=== PATIENT | female | born 1930 | race Caucasian/White ===

== ENCOUNTER 2021-03-21 12:52 | Inpatient (IN) ==
[2021-03-21] MEDS ORDERED: HYDROmorphone 2 MG/1 ML VIAL IV STA (14:20)
[2021-03-21] MEDS ORDERED: ONDANSETRON 4 MG/2 ML VIAL IV STA (14:20)
[2021-03-21] MEDS ORDERED: ONDANSETRON 4 MG/2 ML VIAL ONE (14:22)
[2021-03-21] MEDS ORDERED: HYDROmorphone 2 MG/1 ML VIAL ONE (14:23)
[2021-03-21 14:32] LABS: Basophils # 0.1 10*3/uL (0.0-0.2); Basophils % 0.6 % (0.0-0.8); Eosinophils % 0.1 % (0.00-10.9); Hematocrit 21.5 VOL% (35.7-47.0); Hemoglobin 7.1 GM/DL (12.0-16.0); Immature Granulocytes % 0.7 %; Immature Granulocytes Absolute 0.06 #; Lymphocytes % 12.1 % (21.3-54.2); Mean Corpuscular Volume 110.3 FL (87-102); Mean Platelet Volume 13.9 FL (9.6-12.0); Monocytes % 11.5 % (1.7-12.7); Platelet Count 210 T/CUMM (130-400); Red Blood Count 1.95 MC/CUMM (3.8-5.5); Red Cell Distribution Width 17.2 % (9.3-17.3); White Blood Count 8.2 T/CUMM (4-12)
[2021-03-21 14:40] LABS: PT Patient Result 11.7 SECS (9.8-11.9); Partial Thromboplastin Time 23.4 SECS (23.9-33.8)
[2021-03-21 14:46] LABS: Albumin 2.9 G/DL (3.4-5.0); Bilirubin,Total 0.8 MG/DL (0.2-1.0); Calcium 9.5 MG/DL (8.5-10.1); Osmolality,Calculated 283.4 MOS/KG (273-304); Potassium 4.9 MMOL/L (3.5-5.1); Total Protein 6.5 G/DL (6.4-8.2)
[2021-03-21 14:57] LABS: Bacteria,Urine Many /HPF (Few); Bilirubin,Urine Negative (Negative); Blood, Urine Negative (Negative); Glucose,Urine (UA) Negative (Negative); Ketones,Urine Negative (Negative); Mucus,Urine Few /LPF (Occasional); Nitrite,Urine Negative (Negative); Protein,Urine Negative; RBC,Urine 5 /HPF (0-4); Squamous Epithelial Cell,Urine Occasional /HPF (0-10); Urine Appearance Slightly Hazy (Clear); Urine Color Yellow (Yellow); Urine Specific Gravity 1.018 (1.001-1.035); Urine Urobilinogen < 2.0 EU/DL (0.2-1.0); WBC,Urine 118 /HPF (0-6)
[2021-03-21] MEDS ORDERED: ONDANSETRON 4 MG/2 ML VIAL IV PRN (16:02)
[2021-03-21] MEDS ORDERED: GLUCAGON 1 MG VIAL IM PRN (16:02)
[2021-03-21] MEDS ORDERED: DEXTROSE 50% 25 GM/50 ML VIAL IV PRN (16:02)
[2021-03-21] MEDS ORDERED: ACETAMINOPHEN 325 MG TABLET PO PRN (16:02)
[2021-03-21] MEDS ORDERED: SODIUM CHLORIDE 0.9% 1,000 ML IV PRN (16:07)
[2021-03-21 16:33] LABS: % Iron Saturation 17.4 % (18-50)
[2021-03-21 16:36] LABS: Folate > 24.0 NG/ML (5.38-24.0); Vitamin B12 632 PG/ML (211-911)
[2021-03-21] MEDS: SODIUM CHLORIDE 0.9% 1,000 ML IV SCH (18:55)
[2021-03-21] MEDS: cefTRIAXone 1,000 MG in SODIUM CHLORIDE 0.9% 100 ML IV SCH (18:56)
[2021-03-21] MEDS: PANTOPRAZOLE 40 MG TABLET PO SCH (18:56)
[2021-03-21] MEDS: MEMANTINE 5 MG TABLET PO SCH (22:17)
[2021-03-22] MEDS ORDERED: LEVOTHYROXINE 75 MCG TABLET PO SCH (06:30)
[2021-03-22 07:24] LABS: Albumin 2.3 G/DL (3.4-5.0); Bilirubin,Total 1.3 MG/DL (0.2-1.0); Potassium 4.9 MMOL/L (3.5-5.1); Risk Ratio 2.33; Total Protein 5.3 G/DL (6.4-8.2); VLDL CHOLESTEROL 11.6 MG/DL
[2021-03-22 07:50] LABS: Basophils % 0.4 % (0.0-0.8); Eosinophils % 0.2 % (0.00-10.9); Immature Granulocytes % 0.6 %; Immature Granulocytes Absolute 0.03 #; Lymphocytes # 1.3 10*3/uL (1.4-4.0); Mean Corpuscular HGB Conc 33.1 GM/DL (32-36); Mean Corpuscular Volume 111.3 FL (87-102); Mean Platelet Volume 13.7 FL (9.6-12.0); Monocytes % 8.3 % (1.7-12.7); Neutrophils % 67.5 % (38.7-73.9); Platelet Count 120 T/CUMM (130-400); Red Blood Count 1.41 MC/CUMM (3.8-5.5); Red Cell Distribution Width 17.3 % (9.3-17.3); White Blood Count 5.4 T/CUMM (4-12)
[2021-03-22 08:00] LABS: Hematocrit 15.7 VOL% (35.7-47.0); Hemoglobin 5.2 GM/DL (12.0-16.0)
[2021-03-22] MEDS: MEMANTINE 5 MG TABLET PO SCH ×2 (08:57→21:34)
[2021-03-22] MEDS: PANTOPRAZOLE 40 MG TABLET PO SCH (08:57)
[2021-03-22] MEDS: DONEPEZIL 5 MG TABLET PO SCH (08:57)
[2021-03-22] MEDS: LEVOTHYROXINE 75 MCG TABLET PO SCH (08:58)
[2021-03-22] MEDS: MELOXICAM 7.5 MG TABLET PO SCH (08:59)
[2021-03-22] MEDS: SODIUM CHLORIDE 0.9% 1,000 ML IV SCH ×3 (11:16→19:00)
[2021-03-22] MEDS ORDERED: BUPIVACAINE MPF 0.25% 30 ML VIAL ONE (12:37)
[2021-03-22] MEDS ORDERED: LIDOCAINE 1%/EPI INJ 20 ML VIAL ONE (12:38)
[2021-03-22] MEDS ORDERED: KETAMINE 500 MG/10 ML VIAL ONE (13:15)
[2021-03-22] MEDS ORDERED: ETOMIDATE 40 MG/20 ML VIAL IV ONE (13:37)
[2021-03-22 14:18] LABS: Hematocrit 23.2 VOL% (35.7-47.0); Hemoglobin 7.3 GM/DL (12.0-16.0)
[2021-03-22] MEDS: cefTRIAXone 1,000 MG in SODIUM CHLORIDE 0.9% 100 ML IV SCH (16:34)
[2021-03-23 05:30] LABS: Basophils # 0.1 10*3/uL (0.0-0.2); Basophils % 1.2 % (0.0-0.8); Eosinophils % 0.4 % (0.00-10.9); Hematocrit 21.8 VOL% (35.7-47.0); Hemoglobin 7.1 GM/DL (12.0-16.0); Immature Granulocytes % 1.7 %; Immature Granulocytes Absolute 0.08 #; Lymphocytes # 1.5 10*3/uL (1.4-4.0); Mean Corpuscular HGB Conc 32.6 GM/DL (32-36); Mean Corpuscular Volume 104.8 FL (87-102); Mean Platelet Volume 13.8 FL (9.6-12.0); Monocytes % 10.2 % (1.7-12.7); Neutrophils % 55.5 % (38.7-73.9); Platelet Count 103 T/CUMM (130-400); Red Blood Count 2.08 MC/CUMM (3.8-5.5); White Blood Count 4.8 T/CUMM (4-12)
[2021-03-23 05:52] LABS: Hypochromasia 1+
[2021-03-23 05:53] LABS: Anisocytosis 1+; Microcytosis 1+
[2021-03-23 05:54] LABS: Platelet Estimate Decreased
[2021-03-23] MEDS: SODIUM CHLORIDE 0.9% 1,000 ML IV SCH ×2 (06:49→08:16)
[2021-03-23] MEDS: PANTOPRAZOLE 40 MG TABLET PO SCH (08:15)
[2021-03-23] MEDS: MELOXICAM 7.5 MG TABLET PO SCH (08:15)
[2021-03-23] MEDS: DONEPEZIL 5 MG TABLET PO SCH (08:15)
[2021-03-23] MEDS: LEVOTHYROXINE 75 MCG TABLET PO SCH (08:15)
[2021-03-23] MEDS: MEMANTINE 5 MG TABLET PO SCH ×2 (08:16→21:27)
[2021-03-23] MEDS ORDERED: FERROUS SULFATE ER 140 MG TABLET PO SCH (09:00)
[2021-03-23] MEDS: FERROUS SULFATE 325 MG TABLET PO SCH (09:39)
[2021-03-23] MEDS ORDERED: SODIUM CHLORIDE 0.9% 1,000 ML IV PRN (13:23)
[2021-03-23 14:25] LABS: Calcium 8.4 MG/DL (8.5-10.1); Osmolality,Calculated 285.3 MOS/KG (273-304); Potassium 4.3 MMOL/L (3.5-5.1)
[2021-03-23] MEDS: cefTRIAXone 1,000 MG in SODIUM CHLORIDE 0.9% 100 ML IV SCH (21:26)
[2021-03-24] MEDS: SODIUM CHLORIDE 0.9% 1,000 ML IV SCH ×2 (03:07→21:39)
[2021-03-24 04:19] LABS: Basophils # 0.1 10*3/uL (0.0-0.2); Basophils % 1.4 % (0.0-0.8); Eosinophils # 0.1 10*3/uL (0.0-0.87); Immature Granulocytes % 1.4 %; Immature Granulocytes Absolute 0.07 #; Lymphocytes # 1.2 10*3/uL (1.4-4.0); Lymphocytes % 24.1 % (21.3-54.2); Mean Corpuscular HGB Conc 34.4 GM/DL (32-36); Mean Corpuscular Volume 94.4 FL (87-102); Monocytes % 9.3 % (1.7-12.7); NRBC # 0.02 10*3/uL; Neutrophils % 62.8 % (38.7-73.9); Red Cell Distribution Width 20.3 % (9.3-17.3); White Blood Count 4.9 T/CUMM (4-12)
[2021-03-24 04:21] LABS: Hematocrit 28.8 VOL% (35.7-47.0); Hemoglobin 9.9 GM/DL (12.0-16.0); Red Blood Count 3.05 MC/CUMM (3.8-5.5)
[2021-03-24 04:22] LABS: Platelet Count 80 T/CUMM (130-400)
[2021-03-24 04:28] LABS: Calcium 8.4 MG/DL (8.5-10.1); Osmolality,Calculated 282.4 MOS/KG (273-304); Potassium 4.5 MMOL/L (3.5-5.1)
[2021-03-24] MEDS: FERROUS SULFATE 325 MG TABLET PO SCH (09:50)
[2021-03-24] MEDS: MELOXICAM 7.5 MG TABLET PO SCH (09:50)
[2021-03-24] MEDS: DONEPEZIL 5 MG TABLET PO SCH (09:50)
[2021-03-24] MEDS: PANTOPRAZOLE 40 MG TABLET PO SCH (09:50)
[2021-03-24] MEDS: MEMANTINE 5 MG TABLET PO SCH ×2 (09:50→21:38)
[2021-03-24] MEDS: LEVOTHYROXINE 75 MCG TABLET PO SCH (09:50)
[2021-03-24] MEDS: cefTRIAXone 1,000 MG in SODIUM CHLORIDE 0.9% 100 ML IV SCH (21:38)
[2021-03-25] MEDS: MELOXICAM 7.5 MG TABLET PO SCH (09:47)
[2021-03-25] MEDS: DONEPEZIL 5 MG TABLET PO SCH (09:47)
[2021-03-25] MEDS: LEVOTHYROXINE 75 MCG TABLET PO SCH (09:47)
[2021-03-25] MEDS: MEMANTINE 5 MG TABLET PO SCH ×2 (09:47→22:27)
[2021-03-25] MEDS: FERROUS SULFATE 325 MG TABLET PO SCH (09:47)
[2021-03-25] MEDS: PANTOPRAZOLE 40 MG TABLET PO SCH (09:47)
[2021-03-25] MEDS: SODIUM CHLORIDE 0.9% 1,000 ML IV SCH (15:44)
[2021-03-25] MEDS: cefTRIAXone 1,000 MG in SODIUM CHLORIDE 0.9% 100 ML IV SCH (22:27)
[2021-03-26 06:05] LABS: Basophils # 0.1 10*3/uL (0.0-0.2); Basophils % 1.7 % (0.0-0.8); Eosinophils # 0.1 10*3/uL (0.0-0.87); Eosinophils % 1.7 % (0.00-10.9); Hematocrit 29.3 VOL% (35.7-47.0); Hemoglobin 9.8 GM/DL (12.0-16.0); Immature Granulocytes % 0.8 %; Immature Granulocytes Absolute 0.03 #; Mean Corpuscular HGB Conc 33.4 GM/DL (32-36); Mean Corpuscular Volume 95.4 FL (87-102); Monocytes % 11.6 % (1.7-12.7); Neutrophils % 56.2 % (38.7-73.9); Platelet Count 95 T/CUMM (130-400); Red Blood Count 3.07 MC/CUMM (3.8-5.5); Red Cell Distribution Width 17.8 % (9.3-17.3); White Blood Count 3.5 T/CUMM (4-12)
[2021-03-26 06:31] LABS: Osmolality,Calculated 280.3 MOS/KG (273-304); Potassium 3.9 MMOL/L (3.5-5.1)
[2021-03-26 06:32] LABS: Hypochromasia 1+; Microcytosis 1+; Platelet Estimate Decreased
[2021-03-26] MEDS: MEMANTINE 5 MG TABLET PO SCH ×2 (09:09→21:26)
[2021-03-26] MEDS: amLODIPine 5 MG TABLET PO SCH (09:09)
[2021-03-26] MEDS: LEVOTHYROXINE 75 MCG TABLET PO SCH (09:09)
[2021-03-26] MEDS: FERROUS SULFATE 325 MG TABLET PO SCH (09:09)
[2021-03-26] MEDS: MELOXICAM 7.5 MG TABLET PO SCH (09:09)
[2021-03-26] MEDS: PANTOPRAZOLE 40 MG TABLET PO SCH (09:09)
[2021-03-26] MEDS: DONEPEZIL 5 MG TABLET PO SCH (09:09)
[2021-03-26] MEDS: SODIUM CHLORIDE 0.9% 1,000 ML IV SCH (12:02)
[2021-03-26] MEDS: cefTRIAXone 1,000 MG in SODIUM CHLORIDE 0.9% 100 ML IV SCH (21:26)
[2021-03-27] MEDS: SODIUM CHLORIDE 0.9% 1,000 ML IV SCH (06:37)
[2021-03-27] MEDS: amLODIPine 5 MG TABLET PO SCH (08:36)
[2021-03-27] MEDS: MEMANTINE 5 MG TABLET PO SCH ×2 (08:36→21:40)
[2021-03-27] MEDS: DONEPEZIL 5 MG TABLET PO SCH (08:36)
[2021-03-27] MEDS: MELOXICAM 7.5 MG TABLET PO SCH (08:36)
[2021-03-27] MEDS: LEVOTHYROXINE 75 MCG TABLET PO SCH (08:36)
[2021-03-27] MEDS: PANTOPRAZOLE 40 MG TABLET PO SCH (08:36)
[2021-03-27] MEDS: FERROUS SULFATE 325 MG TABLET PO SCH (08:36)
[2021-03-27] MEDS: cefTRIAXone 1,000 MG in SODIUM CHLORIDE 0.9% 100 ML IV SCH (21:40)
[2021-03-28] MEDS: SODIUM CHLORIDE 0.9% 1,000 ML IV SCH ×2 (04:23→21:50)
[2021-03-28 05:55] LABS: Basophils # 0.1 10*3/uL (0.0-0.2); Basophils % 1.6 % (0.0-0.8); Eosinophils # 0.1 10*3/uL (0.0-0.87); Eosinophils % 1.8 % (0.00-10.9); Hemoglobin 9.2 GM/DL (12.0-16.0); Immature Granulocytes % 0.8 %; Immature Granulocytes Absolute 0.03 #; Lymphocytes # 1.2 10*3/uL (1.4-4.0); Lymphocytes % 31.1 % (21.3-54.2); Mean Corpuscular HGB Conc 32.9 GM/DL (32-36); Mean Corpuscular Volume 98.2 FL (87-102); Mean Platelet Volume 12.7 FL (9.6-12.0); Monocytes % 10.6 % (1.7-12.7); Neutrophils % 54.1 % (38.7-73.9); Platelet Count 114 T/CUMM (130-400); Red Blood Count 2.85 MC/CUMM (3.8-5.5); Red Cell Distribution Width 17.4 % (9.3-17.3); White Blood Count 3.9 T/CUMM (4-12)
[2021-03-28 06:09] LABS: Calcium 8.6 MG/DL (8.5-10.1); Osmolality,Calculated 280.4 MOS/KG (273-304); Potassium 3.9 MMOL/L (3.5-5.1)
[2021-03-28 06:26] LABS: Hypochromasia 1+; Microcytosis 1+
[2021-03-28] MEDS: LEVOTHYROXINE 75 MCG TABLET PO SCH ×2 (07:22→12:02)
[2021-03-28] MEDS ORDERED: propofoL 200 MG/20 ML VIAL IV ONE (08:10)
[2021-03-28] MEDS ORDERED: DEXAMETHASONE 4 MG/1 ML VIAL ONE ×3 (08:10→09:11)
[2021-03-28] MEDS ORDERED: SEVOFLURANE 1 UNIT/15 MINUTE INH ONE ×5 (08:10→09:45)
[2021-03-28] MEDS ORDERED: ONDANSETRON 4 MG/2 ML VIAL ONE (08:10)
[2021-03-28] MEDS ORDERED: LIDOCAINE 2% 5 ML VIAL ONE ×2 (08:10→08:23)
[2021-03-28] MEDS ORDERED: ROCURONIUM 50 MG/5 ML VIAL IV ONE (08:10)
[2021-03-28] MEDS ORDERED: fentaNYL 100 MCG/2 ML VIAL ONE (08:11)
[2021-03-28] MEDS ORDERED: MIDAZOLAM 2 MG/2 ML VIAL ONE (08:11)
[2021-03-28] MEDS ORDERED: ROPIVACAINE 0.5% 30 ML VIAL ONE (08:24)
[2021-03-28] MEDS ORDERED: hydrALAZINE 20 MG/1 ML VIAL ONE (09:00)
[2021-03-28] MEDS ORDERED: ceFAZolin 1,000 MG VIAL ONE (09:01)
[2021-03-28] MEDS ORDERED: ACETAMINOPHEN INJ 1,000 MG/100 ML VIAL IV ONE (09:11)
[2021-03-28] MEDS ORDERED: NEOSTIGMINE 10 MG/10 ML VIAL ONE (09:12)
[2021-03-28] MEDS ORDERED: GLYCOPYRROLATE 0.4 MG/2 ML VIAL ONE (09:12)
[2021-03-28] MEDS ORDERED: PHENYLEPHRINE 1 MG/10 ML SYRINGE IV ONE (09:29)
[2021-03-28] MEDS ORDERED: SODIUM CHLORIDE 0.9% 1,000 ML IV ONE (09:35)
[2021-03-28] MEDS ORDERED: MAGNESIUM HYDROXIDE SUSP 30 ML UDCUP PO PRN ×2 (09:37→09:38)
[2021-03-28] MEDS ORDERED: BISACODYL 10 MG SUPP RECTAL PRN (09:38)
[2021-03-28] MEDS ORDERED: LACTULOSE 20 GM/30 ML UDCUP PO PRN (09:38)
[2021-03-28] MEDS: PANTOPRAZOLE 40 MG TABLET PO SCH (12:02)
[2021-03-28] MEDS: MEMANTINE 5 MG TABLET PO SCH ×2 (12:02→20:25)
[2021-03-28] MEDS: DONEPEZIL 5 MG TABLET PO SCH (12:02)
[2021-03-28] MEDS: MELOXICAM 7.5 MG TABLET PO SCH (12:02)
[2021-03-28] MEDS: FERROUS SULFATE 325 MG TABLET PO SCH (12:02)
[2021-03-28] MEDS: amLODIPine 5 MG TABLET PO SCH (12:03)
[2021-03-28] MEDS: ceFAZolin 2,000 MG in PREMIX 1 EACH IV SCH (17:27)
[2021-03-28] MEDS: cefTRIAXone 1,000 MG in SODIUM CHLORIDE 0.9% 100 ML IV SCH (20:24)
[2021-03-28] MEDS ORDERED: FONDAPARINUX 2.5 MG/0.5 ML SYRINGE SUBCUT SCH (21:00)
[2021-03-29] MEDS: SODIUM CHLORIDE 0.9% 1,000 ML IV SCH (00:50)
[2021-03-29] MEDS: ceFAZolin 2,000 MG in PREMIX 1 EACH IV SCH (00:50)
[2021-03-29 06:26] LABS: Basophils % 0.7 % (0.0-0.8); Eosinophils % 0.3 % (0.00-10.9); Hematocrit 22.9 VOL% (35.7-47.0); Hemoglobin 7.6 GM/DL (12.0-16.0); Immature Granulocytes % 1.2 %; Immature Granulocytes Absolute 0.07 #; Lymphocytes # 1.1 10*3/uL (1.4-4.0); Lymphocytes % 17.5 % (21.3-54.2); Mean Corpuscular HGB Conc 33.2 GM/DL (32-36); Mean Corpuscular Volume 98.3 FL (87-102); Mean Platelet Volume 13.9 FL (9.6-12.0); Monocytes % 9.3 % (1.7-12.7); Platelet Count 108 T/CUMM (130-400); Red Blood Count 2.33 MC/CUMM (3.8-5.5)
[2021-03-29 06:41] LABS: Calcium 8.8 MG/DL (8.5-10.1); Osmolality,Calculated 285.1 MOS/KG (273-304); Potassium 4.2 MMOL/L (3.5-5.1)
[2021-03-29] MEDS: LEVOTHYROXINE 75 MCG TABLET PO SCH (08:03)
[2021-03-29] MEDS: MELOXICAM 7.5 MG TABLET PO SCH (08:03)
[2021-03-29] MEDS: PANTOPRAZOLE 40 MG TABLET PO SCH (08:03)
[2021-03-29] MEDS: amLODIPine 5 MG TABLET PO SCH (08:03)
[2021-03-29] MEDS: FERROUS SULFATE 325 MG TABLET PO SCH (08:03)
[2021-03-29] MEDS: MEMANTINE 5 MG TABLET PO SCH (08:03)
[2021-03-29] MEDS: DONEPEZIL 5 MG TABLET PO SCH (08:03)
[2021-03-29] MEDS ORDERED: SODIUM CHLORIDE 0.9% 1,000 ML IV PRN (10:09)
[2021-03-29] MEDS ORDERED: traMADol 50 MG TABLET PO PRN (13:32)
[2021-03-29 16:29] VITALS: BP 138/57
== END 2021-03-29 16:44 | disposition hospice, home (50) | DRG 481 ==
LOC: EDUNIT# → N.ED 12:52 → N.EDINP 16:01 → N.TELES 17:45 → N.5E 03-22 20:18
PROVIDERS: ADMIT Internal Medicine; ATTEND Internal Medicine